=== PATIENT | female | born 2000 | race Hispanic/Latino ===

== ENCOUNTER 2022-07-26 06:02 | Day surgery (SDC) | payer BC ==
[2022-07-23 13:09] VITALS: BMI 30.7
[2022-07-26] MEDS ORDERED: PROPOFOL 40 ML ONE ×2 (07:57→08:47)
== END 2022-07-26 09:42 | disposition home or self-care (01) ==
LOC: CSHSDC 06:02
PROVIDERS: ATTEND Internal Medicine Gastroenterology
PROC: 0DJD8ZZ Inspection of Lower Intestinal Tract, Via Natural or Artificial Opening Endoscopic (ICD-10-PCS; principal; 2022-07-26)
DX: K64.8 Other hemorrhoids (principal); K92.1 Melena; D64.9 Anemia, unspecified; J45.909 Unspecified asthma, uncomplicated; G43.909 Migraine, unspecified, not intractable, without status migrainosus; F32.A Depression, unspecified
CPT/HCPCS: J2704